=== PATIENT | female | born 1955 | race Caucasian/White ===

== ENCOUNTER 2023-12-27 08:08 | Emergency (ER) | payer MEDICARE, SELFPAY ==
[2023-12-27] VITALS (11 sets, daily range): BP systolic 131–138; BP diastolic 63–76; PULSE 60; TEMP 36.7; O2SAT 88–100; BMI 25.8
--- NOTE | 2023-12-27 08:44 | CT_ITS ---
The [address] [address] Patient Name: EDELMIRA GARRETT MRN: [id number] date: 1955 Sex: F Assigned Patient Location: ED.MAIN Current Patient Location: ED.MAIN Accession/Order Number: [id number] Exam Date: 12/27/2023 10:24 Report Date: 12/27/2023 10:55 At the request of: JAMES HWANG Procedure: CT lumbar spine wo con PROCEDURE: CT lumbar spine wo con COMPARISON: None. HISTORY: radicular sxs TECHNIQUE: Axial, Coronal, and Sagittal CT images obtained without IV contrast. Dose reduction techniques were achieved by using automated exposure control and/or adjustment of mA and/or kV according to patient size and/or use of iterative reconstruction technique. FINDINGS: PARASPINAL AREA: Normal with no visible mass. DISCS: Moderate to severe multilevel disc space narrowing most significant L4-5 and L5-S1 with endplate sclerosis and vacuum disks. Moderate diffuse disc/osteophyte complexes throughout the lumbar spine with bilateral L5-S1 foraminal stenosis. Moderate posterior disc/osteophyte complex at L1 4 L5 extending posteriorlyr up to 4 mm into the central canal. BONES: Normal alignment with no acute fractures or spondylolisthesis. Mild to moderate degenerative spondylosis and facet osteoarthropathy OTHER: Extensive vascular calcifications CT/CT lumbar spine wo con IMPRESSION: Moderate diffuse degenerative changes with bilateral L5 foraminal stenosis No acute abnormality Electronically authenticated by: ASHLEY FUCHS Date: 12/27/2023 10:55
--- NOTE | 2023-12-27 08:52 | ED_ITS ---
HPI HPI - General Adult General Chief complaint: Back Pain/Injury Stated complaint: LOWER EXTREMITY PAIN BOTH SIDES Time Seen by Provider: 12/27/23 08:14 Source: patient Mode of arrival: Wheelchair Limitations: no limitations History of Present Illness HPI narrative: Patient was in ED complaining of low back pain that radiates into both hips and into the left thigh. She is dealt with back pain on and off for years and she will get flareups sometimes. She has been to her doctor in the past for lidocaine injections. She has had a back surgery many many years ago but she cannot remember exactly what it was or what it was for. She was pain-free after surgery for a long time and then it started to flareup again. No loss of bowel or bladder function. No vomiting no abdominal pain. She does say it radiates through into the groin and her legs but no specific abdominal pain. She is not on blood thinners, no IV drug abuse. Patient denies fevers. No saddle anesthesia. She reports for the past 3 nights she has had trouble sleeping because of the pain. She called her doctor and actually had an appointment this morning and wanted to get a muscle relaxer and pain medicine but decided to come to the ED instead Related Data Home Medications ?Medication ?Instructions ?Recorded ?Confirmed ezetimibe 10 mg tablet 10 mg PO .QD 12/27/23 12/27/23 famotidine 40 mg tablet 40 mg PO .QHS 12/27/23 12/27/23 levothyroxine 25 mcg tablet 25 mcg PO .ACB 12/27/23 12/27/23 montelukast 10 mg tablet 10 mg PO .QD 12/27/23 12/27/23 rosuvastatin 5 mg tablet 5 mg PO .QD 12/27/23 12/27/23 venlafaxine 150 mg 150 mg PO QAM 12/27/23 12/27/23 capsule,extended release 24 hr Previous Rx's ?Medication ?Instructions ?Recorded cyclobenzaprine 10 mg tablet 10 mg PO TID #14 tabs 12/27/23 methylprednisolone 4 mg tablets in 4 mg PO DAILY #21 ea 12/27/23 a dose pack (Medrol (Tripp)) oxycodone-acetaminophen 5 mg-325 1 tab PO Q6H #14 tabs 12/27/23 mg tablet (Percocet) Allergies Allergy/AdvReac Type Severity Reaction Status Date / Time No Known Drug Allergies Allergy Verified 12/27/23 08:16 Opioid HPI Opioid Management Most Recent Opioid Data: Last Pain Scale 4 12/27/23 11:07 Last ED Pain Assessment 12/27/23 11:07 Last MAR Pain Assessment 12/27/23 09:50 Review of Systems ROS Status of ROS 10 or more systems reviewed and unremark able except as noted in history and below Exam Narrative Exam Narrative: Time Seen: [] Vital Signs: [Per nurse's notes.] General: [Alert] Skin: [Warm, dry, no rash.] Head: [Normocephalic, atraumatic.] Neck: [Supple, trachea midline.] Eye: [Pupils are equal, round and reactive to light, extraocular movements are intact, normal conjunctiva.] Ears, nose, mouth and throat: oral mucosa moist. Cardiovascular: [Regular rate and rhythm, no murmur.] Respiratory: [Lungs are clear to auscultation, respirations are non-labored, breath sounds are equal.] Chest wall: [No tenderness, no deformity.] Gastrointestinal: [Soft, nontender, non distended, normal bowel sounds.] MSK: 5 out of 5 muscle strength x 4 extremities no calf pain or edema, Normal distal pulses and sensation. Normal proprioception in her feet. Normal push pull in her feet. Tenderness in the lumbar region paraspinal and SI joints. Lymphatics: [No lymphadenopathy.] Psychiatric: [Cooperative, appropriate mood & affect.] Neurological: [Alert and oriented to person, place, time, and situation, no focal neurological deficit observed.] Constitutional Vital Signs, click to edit/add: Last Vital Signs Temp 98.1 F 12/27/23 08:12 Pulse 60 12/27/23 08:12 Resp 16 12/27/23 08:12 BP 138/63 12/27/23 11:19 Pulse Ox 99 12/27/23 11:19 O2 Del Method Room Air 12/27/23 08:12 O2 Flow Rate 2 12/27/23 09:55 Course Vital Signs Vital signs: Vital Signs Temperature 98.1 F 12/27/23 08:12 Pulse Rate 60 12/27/23 08:12 Respiratory Rate 16 12/27/23 08:12 Blood Pressure 131/76 12/27/23 08:12 Pulse Oximetry 97 12/27/23 08:12 Oxygen Delivery Method Room Air 12/27/23 08:12 Temperature 98.1 F 12/27/23 08:12 Pulse Rate 60 12/27/23 08:12 Respiratory Rate 16 12/27/23 08:12 Blood Pressure 138/63 12/27/23 11:19 Pulse Oximetry 99 12/27/23 11:19 Oxygen Delivery Method Room Air 12/27/23 08:12 Oxygen Delivery Flow Rate 2 12/27/23 09:55 Medical Decision Making MDM Narrative Medical decision making narrative: Patient CT scan shows foraminal stenosis at L5. This is consistent with the patient's findings. Patient is feeling better with pain medication and muscle relaxers. I will send her home with pain meds, muscle relaxers, and steroids for the inflammation. She said she has seen Dr. Colunga in the past so I will refer her to outpatient neurosurgery for further management. Also follow-up with family doctor for management as well. She is neurologically intact. Return to ED if worsening symptoms or anything more that is concerning. Differential Diagnosis Differential Diagnosis: Cauda equina, lumbar radiculopathy, sciatica, lumbar strain Medical Records Medical records reviewed: Yes I reviewed the patient's medical records Lab Data Lab results reviewed: Yes I reviewed the patient's lab results Labs: Lab Results 12/27/23 Range/Units 08:55 WBC 5.4 (4.0-11.0) 10^3/uL RBC 4.09 L (4.20-5.40) 10^6/uL Hgb 12.5 (12.0-16.0) g/dL Hct 37.0 (36.0-48.0) % MCV 90.5 (81.0-99.0) fL MCH 30.6 (26.7-34.0) pg MCHC 33.8 (29.9-35.2) g/dL RDW 13.1 (11.0-15.0) % Plt Count 276 (150-450) 10^3/uL MPV 10.0 (9.5-13.5) fL Neut % (Auto) 59.2 (43.0-75.0) % Lymph % (Auto) 27.4 (20.5-60.0) % [place] % (Auto) 10.6 (1.7-12.0) % Eos % (Auto) 1.7 (0.9-7.0) % Baso % (Auto) 0.9 (0.2-2.0) % Neut # (Auto) 3.2 (1.4-6.5) 10^3/uL Lymph # (Auto) 1.5 (1.2-3.8) 10^3/uL [place] # (Auto) 0.6 (0.3-0.8) 10^3/uL Eos # (Auto) 0.1 (0.0-0.7) 10^3/uL Baso # (Auto) 0.1 (0.0-0.1) 10^3/uL Abs Immat Gran (auto) 0.01 (0.00-0.03) 10^3/uL Imm/Tot Granulo (auto) 0.2 (0.0-0.5) % Sodium 135 L (136-145) mmol/L Potassium 4.2 (3.5-5.1) mmol/L Chloride 99 (98-107) mmol/L Carbon Dioxide 24.8 (21.0-32.0) mmol/L Anion Gap 15.4 BUN 9.0 (7.0-18.0) mg/dL Creatinine 0.71 (0.55-1.02) mg/dL Est GFR ( Amer) >60 (>=60) Est GFR (Non-Af Amer) >60 (>=60) BUN/Creatinine Ratio 12.7 Glucose 99 (74-106) mg/dL Calcium 8.7 (8.5-10.1) mg/dL Total Bilirubin 0.6 (0.2-1.0) mg/dL AST 19 (15-37) U/L ALT 30 (14-59) U/L Alkaline Phosphatase 75 (46-116) U/L Total Protein 6.9 (6.4-8.2) g/dL Albumin 4.0 (3.4-5.0) g/dL Globulin 2.9 g/dL Albumin/Globulin Ratio 1.[address] scan - abdomen: Radiologist's impression: ITS Impressions Lumbar Spine CT 12/27/23 08:44 IMPRESSION: Moderate diffuse degenerative changes with bilateral L5 foraminal stenosis No acute abnormality Electronically authenticated by: ASHLEY FUCHS Date: 12/27/2023 10:55 Discharge Plan Discharge Stand Alone Forms: Portal Instructions Chief Complaint: Back Pain/Injury Clinical Impression: Lumbar radiculopathy Patient Disposition: Home, Self-Care Time of Disposition Decision: 11:13 Condition: Good Mode of Transportation: Private Vehicle Prescriptions / Home Meds: New cyclobenzaprine 10 mg tablet 10 mg PO TID Qty: 14 0RF oxycodone-acetaminophen [Percocet] 5-325 mg tablet 1 tab PO Q6H Qty: 14 0RF methylprednisolone [Medrol (Tripp)] 4 mg tablets,dose pack 4 mg PO DAILY Qty: 21 0RF No Action famotidine 40 mg tablet 40 mg PO .QHS venlafaxine 150 mg capsule,extended release 24hr 150 mg PO QAM levothyroxine 25 mcg tablet 25 mcg PO .ACB montelukast 10 mg tablet 10 mg PO .QD ezetimibe 10 mg tablet 10 mg PO .QD rosuvastatin 5 mg tablet 5 mg PO .QD Print Language: Guatemalan Instructions: Lumbar Radiculopathy (ED) Referrals: VIVEK GARCIA MD [Primary Care Provider] - 1 week SHARON COLUNGA [Physician] - 1 week Sonia Gan MD [Physician] - 1 week Discharge Date/Time: 12/27/23 11:25
[2023-12-27] MEDS: KETOROLAC TROMETHAMINE 30 MG/ML VIAL IVP (08:57)
[2023-12-27] MEDS: ORPHENADRINE 60 MG/ 2 ML VIAL IV (08:58)
[2023-12-27 09:07] LABS: Basophils Absolute Auto 0.1 10^3/uL (0.0-0.1); Basophils Percent Auto 0.9 % (0.2-2.0); Eosinophils Absolute Auto 0.1 10^3/uL (0.0-0.7); Eosinophils Percent Auto 1.7 % (0.9-7.0); Hemoglobin 12.5 g/dL (12.0-16.0); Immature Granulocytes Abs Auto 0.01 10^3/uL (0.00-0.03); Immature Granulocytes Pct Auto 0.2 % (0.0-0.5); Lymphocytes Absolute Auto 1.5 10^3/uL (1.2-3.8); Lymphocytes Percent Auto 27.4 % (20.5-60.0); Mean Corpuscular HGB Conc 33.8 g/dL (29.9-35.2); Mean Corpuscular Hemoglobin 30.6 pg (26.7-34.0); Mean Corpuscular Volume 90.5 fL (81.0-99.0); Monocytes Absolute Auto 0.6 10^3/uL (0.3-0.8); Monocytes Percent Auto 10.6 % (1.7-12.0); Neutrophils Absolute Auto 3.2 10^3/uL (1.4-6.5); Neutrophils Percent Auto 59.2 % (43.0-75.0); Platelet Count 276 10^3/uL (150-450); Red Blood Count 4.09 10^6/uL (4.20-5.40); Red Cell Distribution Width 13.1 % (11.0-15.0); White Blood Count 5.4 10^3/uL (4.0-11.0)
[2023-12-27 09:24] LABS: Alanine Aminotransferase 30 U/L (14-59); Albumin Globulin Ratio 1.4; Alkaline Phosphatase 75 U/L (46-116); Anion Gap 15.4; Aspartate Amino Transferase 19 U/L (15-37); BUN Creatinine Ratio 12.7; Bilirubin Total 0.6 mg/dL (0.2-1.0); Calcium 8.7 mg/dL (8.5-10.1); Carbon Dioxide 24.8 mmol/L (21.0-32.0); Chloride 99 mmol/L (98-107); Estimated GFR (African America >60 (>=60); Estimated GFR (Non-African Ame >60 (>=60); Globulin 2.9 g/dL; Glucose 99 mg/dL (74-106); Potassium 4.2 mmol/L (3.5-5.1); Sodium 135 mmol/L (136-145); Total Protein 6.9 g/dL (6.4-8.2)
[2023-12-27] MEDS: DIAZEPAM 10 MG/2 ML SYRINGE 2 MG IV (09:50)
[2023-12-27] MEDS: HYDROMORPHONE HCL 0.5 MG/0.5 ML SYRINGE IV (09:50)
== END 2023-12-27 11:25 | disposition home or self-care (01) ==
PROVIDERS: Emergency Provider Emergency Medicine; PCP Internal Medicine
DX: M54.16 Radiculopathy, lumbar region (principal); M48.061 Spinal stenosis, lumbar region without neurogenic claudication
CPT/HCPCS: 36415; 72131; 80053; 85025; 96374; 96375; 99284; J1170; J1885; J2360; J3360

== ENCOUNTER 2024-04-23 09:58 | Outpatient (RCR) | payer MEDICARE, SELFPAY | END 2024-05-03 13:28 | disposition home or self-care (01) | LOC: PT 09:58 | PROVIDERS: PCP Internal Medicine | DX: M48.062 Spinal stenosis, lumbar region with neurogenic claudication (principal); M48.061 Spinal stenosis, lumbar region without neurogenic claudication; R29.3 Abnormal posture; R26.89 Other abnormalities of gait and mobility; R26.9 Unspecified abnormalities of gait and mobility | CPT/HCPCS: 97112; 97161 ==

== ENCOUNTER 2024-06-05 12:20 | Outpatient (OUT) | payer MEDICARE, SELFPAY ==
--- NOTE | 2024-06-05 | CONS_ITS ---
CONSULTATION DATE: 06/05/2024 TO: Dr. Gomez CHIEF COMPLAINT: Includes severe bilateral lower back pain, bilateral lower extremity pain. HISTORY OF PRESENT ILLNESS: Review of systems, past medical/surgical history were obtained and documented on the health questionnaire and is available upon request. She is a 68-year-old female, reports of having had pain in the above mentioned areas for many years. It is rated between 3-7/10 pain, described as a deep aching pain with a sharp component, increased with activity such as standing, walking and performing transitioning maneuvers. She feels most comfortable in the semi-recumbent position. Denies any change in bowel and bladder habits, and she reports at times progressive tingling and weakness of the lower extremities. CURRENT MEDICATION: Includes Tylenol, [id number] Motrin she takes regularly and she also in an independent exercise program. She swims on a regular basis. Despite this, she has progressive pain in the above mentioned areas. EXAM: Her examination is notable for patient having hypoesthesia along the L4 dermatome, occurring bilaterally. She appears to have 3/5 strength of her quadriceps and anterior tibialis bilaterally. Straight leg raise was equivocally positive at approximately 90 degrees. She had no signs consistent with myelopathy involving the lower extremities. IMPRESSION: Our impression is patient with chronic pain secondary to L4 radiculopathy from spinal stenosis. RECOMMENDATIONS: I recommend she consider starting Zonegran 50 mg q.h.s. for seven days, then increase this to 100 mg at h.s. thereafter. Proceed with a bilateral L4-5 transforaminal epidural steroid injection under fluoroscopic guidance and maintain her independent aquatic program. I have gone over the details of the procedure with the patient. All her questions answered. She agrees to proceed with the outlined plan. As part of providing excellent, safe, comprehensive care, the following was completed at our patient's visit: 1. A medication reconciliation and review to ensure accurate knowledge of current/active medications, including asking our patients to inform us about any [id number] medications or herbal remedies/nutritional supplements/alternative remedies. 2. A review to specifically ensure our patients have had annual screening for: elevated body mass index (BMI, see intake chart for exact total), tobacco use, screening for depression, and screening for unhealthy alcohol use. When screening is concerning, patients are provided with education and the specific recommendation to discuss the concerning health issue and treatment options with their primary care provider. YOLANDAD
== END 2024-06-05 12:21 | disposition home or self-care (01) ==
LOC: PM 12:21
PROVIDERS: PCP Internal Medicine; Visit Provider Nurse Practitioner
DX: M48.062 Spinal stenosis, lumbar region with neurogenic claudication (principal); M54.16 Radiculopathy, lumbar region
CPT/HCPCS: G0463

== ENCOUNTER 2024-06-18 07:35 | Day surgery (SDC) | payer MEDICARE, SELFPAY ==
--- OUTSIDE RECORDS SUMMARY | 2024-06-18 07:38 | XMS_ITS | CCD ---
Author Organization [facility] Care Team Providers Care Golf Coach Name Role Phone Messi Jimenez Unavailable DR HENRI GARCIA Primary Care Unavailable MARIANA LUNDY Admitting Unavailable MARIANA LUNDY Attending Unavailable NARCISO, DR LILIANE Hughes Consulting Unavailable MARIANA LUNDY Consulting Unavailable DR HENRI GARCIA Primary Care Unavailable JULIETTE BUNCH Admitting Unavailable JULIETTE BUNCH Attending Unavailable JULIETTE BUNCH Consulting Unavailable JR Henri Garcia Primary Care Provider ELIUD Winn Attending Provider Henri Garcia Primary Care Unavailable Rachelle Winn Admitting Unavailable Rachelle Winn Attending Unavailable Henri Garcia Primary Care Unavailable Lyle, Rachelle Admitting Unavailable Rachelle Winn Attending Unavailable RACHELLE WINN Referring Unavailable HENRI GARCIA JR Primary Care Unavailable Allergies Allergy Classification Reported Allergen(s) Allergy Type Date of Onset Reaction(s) Facility (4 sources) celecoxib Drug Allergy [facility] Other (1 source) celecoxib Drug Allergy 01-19-2024 [facility] Repository Medications Current Medications Medication Drug Class(es) Dates Sig (Normalized) Sig (Original) dexamethasone 1 mg oral tablet (3 sources) Corticosteroid Start: 01-19-2024 Dexamethasone Active MG PO January 19, 2024 12:00am ezetimibe 10 mg oral tablet (3 sources) Dietary Cholesterol Absorption Inhibitor Start: 01-19-2024 Ezetimibe Active MG PO January 19, 2024 12:00am famotidine 40 mg oral tablet (3 sources) Histamine-2 Receptor Antagonist Start: 01-19-2024 Famotidine Active MG PO January 19, 2024 12:00am fexofenadine (4 sources) Histamine-1 Receptor Antagonist Fexofenadine HCl Active levothyroxine sodium 0.025 mg oral tablet (7 sources) l-Thyroxine Start: 01-19-2024 Levothyroxine Active MCG PO January 19, 2024 12:00am take 1 tablet by art th once daily in the morning Levothyroxine Sodium 25 MCG 1 tablet in the morning on an empty stomach Orally Once a day Active rosuvastatin calcium 5 mg oral tablet (3 sources) HMG-CoA Reductase Inhibitor Start: 01-19-2024 Rosuvastatin Active MG PO January 19, 2024 12:00am venlafaxine (7 sources) Serotonin and Norepinephrine Reuptake Inhibitor Start: 01-19-2024 Venlafaxine Active M G PO January 19, 2024 12:00am take 1 tablet by art th every twenty-four hours Venlafaxine HCl 75 MG 1 tablet with food Orally Once a day Active Vitamin D (4 sources) Vitamin D Active Completed/Discontinued Medications Medication Drug Class(es) Dates Sig (Normalized) Sig (Original) atorvastatin 40 mg oral tablet (4 sources) HMG-CoA Reductase Inhibitor take 1 tablet by mouth every twenty-four hours Atorvastatin Calcium 40 MG 1 tablet Orally Once a day Not-Taking Problems Active Problems Problem Classification Problem Date Documented Da te Episodic/Chronic Abdominal pain (3 sources) Unspecified abdominal pain; Translations: [UNSPECIFIED ABDOMINAL PAIN] Onset: 05-15-2022 Episodic E Codes: Adverse effects of medical drugs (1 source) Adverse effect of other drugs, medicaments and biological substances, initial encounter; Translations: [ADVRS EFF OTH RX MED BIO SUBST INIT] Onset: 05-24-2022 Episodic Nausea and vomiting (4 sources) Nausea with vomiting, unspecified; Translations: [NAUSEA WITH VOMITING UNSPECIFIED] Onset: 05-21-2022 Episodic Other aftercare (1 source) Other fci (current) drug therapy; Translations: [OTH LONG-TERM CURRENT DRUG THERAPY] Onset: 05-24-2022 Episodic Other nervous system disorders (4 sources) Chronic pain; Translations: [Other chronic pain] Chronic Other nervous system disorders (2 sources) Other chronic pain Onset: 06-04-2021 Resolved: 07-14-2021 Chronic Residual codes; unclassified (1 source) Asymptomatic menopausal state; Translations: [Asymptomatic menopausal state] Onset: 02-28-2024 Episodic Spondylosis; intervertebral disc disorders; other back problems (18 sources) Solitary sacroiliitis; Translations: [Sacroiliitis, not elsewhere classified] Onset: 06-04-2021 Resolved: 07-14-2021 Chronic Spondylosis; intervertebral disc disorders; other back problems (12 sources) Lumbar radiculopathy; Translations: [Radiculopathy, lumbar region] Onset: 06-04-2021 Resolved: 07-14-2021 Episodic Viral infection (1 source) Zoster without complications; Translations: [ZOSTER WITHOUT COMPLICATIONS] Onset: 05-24-2022 Episodic Past or Other Problems Problem Classification Problem Date Documented Da te Episodic/Chronic Other non-traumatic joint disorders (1 source) Pain in left hip Onset: 06-04-2021 Resolved: 06-04-2021 Episodic Other non-traumatic joint disorders (1 source) Pain in right hip Onset: 06-04-2021 Resolved: 06-04-2021 Episodic Results Test Name Value Interpretation Reference Range Facility XR lumbar spine AP/LAT/FLX/E XTon 02-28-2024 XR lumbar spine AP/LAT/FLX/EXT [facility] [place] [address] XRay Report Signed Patient: Kelly Carroll MR#: [id number] : 1955 Acct:[id number] Age/Sex: 68 / F ADM Date: 02/28/24 Loc: [place] Room: Type: [facility] Attending Dr: Rachelle Winn APRN Copies to: Rachelle Winn APRN Ordering Provider: Rachelle Winn APRN Date of Service: 02/28/24 XR/XR lumbar spine AP/LAT/FLX/EXT: M54.16 - Radiculopathy, lumbar region LUMBAR SPINE - 4 views CLINICAL HISTORY: Low back pain for 4 years with numbness into going into both legs. COMPARISON: Lumbar spine 02/28/2012 FINDINGS: Vertebral body heights appear maintained. Diffuse degenerative disease worst at L4-L5. There is associated endplate and facet joint degenerative changes. No pathological motion is seen on flexion or extension views. XR/XR lumbar spine AP/LAT/FLX/EXT IMPRESSION: DIFFUSE DEGENERATIVE DISEASE, WORST AT L4-L5. Impression dictated by: Narendra Aquino Jr., D.O.02/28/2024 2:45 PM Dictation Location: [place] [address] Transcribed By: [facility] 02/28/24 1445 Dictated By: Narendra Aquino Jr, DO 02/28/24 1441 Signed By: 02/28/24 1445 Normal [facility] MR lumbar spine wo/w conon 0 02-14-2024 MR lumbar spine wo/w con [facility] [place] [address] MRI Report Signed Patient: Kelly Carroll MR#: [id number] : 1955 Acct:[id number] Age/Sex: 68 / F ADM Date: 02/13/24 Loc: Room: Type: [facility] Attending Dr: Rachelle Winn APRN Copies to: Rachelle Winn APRN Ordering Provider: Rachelle Winn APRN Date of Service: 02/13/24 MR/MR lumbar spine wo/w con: M54.16 MR lumbar spine wo/w con 02/13/2024 7:12 PM SIGNS AND SYMPTOMS: Low back pain, numbness and tingling in lower extremities PROTOCOL: Multiple multisequence MR images of the lumbar spine were obtained with and without IV contrast. CONTRAST: 15 mL of intravenous ProHance COMPARISON: 02/28/2012 FINDINGS: The bones of the lumbar spine are in anatomic alignment. There is preservation of vertebral body heights. There is moderate disc height loss at T12-L1 and L1-L2. There is mild disc height loss at L3-L4 and L5-S1. This severe disc height loss at L4-L5. There is Modic type II fatty endplate degenerative change at L4-5 with mild endplate edema. There is mild Modic type I endplate edema at L1-L2 and L2-L3. The conus terminates at the inferior endplate of the L1 vertebral body level. No epidural or paraspinous fluid collection is appreciated. At T11-T12: There is a central disc protrusion slightly to the left of midline contributing to mass effect on the anterior aspect of the cord displacing it posteriorly into the right of midline. No underlying edema and enhancement is noted to suggest cord compression. There is moderate spinal canal stenosis. Facet hypertrophy is present with ligamentum flavum thickening contributing to mild bilateral neural foraminal narrowing. At T12-L1: There is a central disc extrusion with caudal migration contributing to moderate spinal canal narrowing. There is facet hypertrophy bilaterally. There is mild bilateral neural foraminal narrowing. At L1-L2: There is a circumferential disc bulge with facet hypertrophy and small bilateral facet effusions. There is mild spinal canal narrowing with moderate bilateral neural foraminal stenosis. At L2-L3: There is a circumferential disc bulge with facet hypertrophy. There is ligament flavum thickening and small bilateral facet effusions. There is oovd-[id number] narrowing of the spinal canal with moderate bilateral neural foraminal stenosis. At L3-L4: There is a broad-based disc bulge with facet hypertrophy. There is an internal synovial cyst arising from the facet on the right measuring 5 mm in greatest dimension contributing to mild spinal canal stenosis. There is mild to moderate bilateral neural foraminal narrowing. At L4-L5: There is a circumferential disc bulge with a focal right subarticular disc extrusion. There is facet hypertrophy. There is mild to moderate narrowing of the spinal canal with moderate bilateral neural foraminal stenosis. At L5-S1: There is a circumferential disc bulge with endplate osteophyte formation. There is facet hypertrophy. There is severe bilateral neural foraminal narrowing with mass effect on the exiting L5 nerve roots bilaterally. There is mild spinal canal narrowing. MR/MR lumbar spine wo/w con IMPRESSION: At L5-S1: There is a circumferential disc bulge with endplate osteophyte formation. There is facet hypertrophy. There is severe bilateral neural foraminal narrowing with mass effect on the exiting L5 nerve roots bilaterally. There is mild spinal canal narrowing. At L3-L4: There is a broad-based disc bulge with facet hypertrophy. There is an internal synovial cyst arising from the facet on the right measuring 5 mm in greatest dimension contributing to mild spinal canal stenosis. There is mild to moderate bilateral neural foraminal narrowing. At T11-T12: There is a central disc protrusion slightly to the left of midline contributing to mass effect on the anterior aspect of the cord displacing it posteriorly into the right of midline. No underlying edema and enhancement is noted to suggest cord compression. There is moderate spinal canal stenosis. Facet hypertrophy is present with ligamentum flavum thickening contributing to mild bilateral neural foraminal narrowing. Lesser degrees of degenerative changes are noted throughout, as described above. No abnormal postcontrast enhancement. Impression dictated by: Timothy Daniel M.D.02/14/2024 12:31 PM Dictation Location: [place] [address] Transcribed By: [facility] 02/14/24 1231 Dictated By: Timothy Daniel II, MD 02/14/24 1220 Signed By: 02/14/24 1231 Normal [facility] Creatinine (Bld) [Mass/Vol]O rdered By: Rachelle Winn on 02-13-2024 Creatinine [Mass/Vol] 0.8 mg/dL 0.6-1.3 [facility] Comment on above: ER/ESD physician is notified/shown all ISTAT results.Critical values may be confirmed by laboratory testing ifdeemed necessary by ER attending doctor. No Panel InformationOrdered By: Rachelle Winn on 02-13-2024 Bedside Estimated GFR (eGFR) > 60.0 [facility] CARDIAC TIMOTHY ADMITon 022 CK [Catalytic activity/Vol] 112 U/L Normal 26-192 [facility] Comment on above: Performed By: #### C CARLI JOHNSON #### [facility] [address] [place] [address] Dr. Didier Gamez CK.MB [Mass/Vol] 1.46 ng/mL Normal <=3.[address] [facility] Comment on above: Performed By: #### C ELIZABETH, CARLI #### [facility] [address] [place] [address] [address] Didier Gamez HSTROP 5.7 pg/mL Normal 4.0-51.3 [facility] Comment on above: Result Comment: CUT- OFF POINTS HAVE BEEN ESTABLISHED BASED ON THE FOURTH UNIVERSAL DEFINITIONS OF MYOCARDIAL INFARCTION. THE UPPER REFERENCE LIMIT (URL) OF TROPONIN, DEFINED THE 99TH PERCENTILE OF cTnI DISTRIBUTION IN A REFERENCE POPULATION, HAS BEEN CONFIRMED THE DECISION THRESHOLD FOR MD DIAGNOSIS. Performed By: #### C ELIZABETH, QUINTINDM #### [facility] [address] [place] [address] [address] Didier Gamez ALTON 42 ng/mL Normal 9-82 [facility] Comment on above: Performed By: #### C MP, CMADM #### [facility] [address] [place] [address] [address] Didier Gamez CBC AUTO DIFFon 05-15-2022 BASO # 0.0 103/ul Normal 0.0-0.1 [facility] Comment on above: Performed By: #### C BC #### [facility] [address] [place] [address] Dr. Didier Gamez Basophils/100 WBC (Bld) 0.6 % Normal 0.2-2.0 [facility] Comment on above: Performed By: #### C BC #### [facility] [address] [place] [address] Dr. Didier Gamez EO # 0.1 103/ul Normal 0.0-0.7 [facility] Comment on above: Performed By: #### C BC #### [facility] [address] [place] [address] Dr. Didier Gamez Eosinophils/100 WBC (Bld) 0.7 % Critically low 0.9-7.0 [facility] Comment on above: Performed By: #### C BC #### [facility] [address] [place] [address] Dr. Didier Gamez Erythrocyte distribution width (RBC) [Ratio] 13.1 % Normal 11.0-15.0 [facility] Comment on above: Performed By: #### C BC #### [facility] [address] [place] [address] Dr. Didier Gamez Hematocrit (Bld) [Volume fraction] 41.0 % Normal 36.0-48.0 [facility] Comment on above: Performed By: #### C BC #### [facility] [address] [place] [address] Dr. Didier Gamez Hemoglobin (Bld) [Mass/Vol] 13.6 g/dL Normal 12.0-16.0 [facility] Comment on above: Performed By: #### C BC #### [facility] [address] [place] [address] Dr. Didier Gamez IG # 0.01 10e3/ul Normal 0.00-0.03 [facility] Comment on above: Performed By: #### C BC #### [facility] [address] [place] [address] Dr. Didier Gamez IG % 0.1 % Normal 0.0-0.5 [facility] Comment on above: Performed By: #### C BC #### [facility] [address] [place] [address] Dr. Didier Gamez LYMPH # 1.5 103/ul Normal 1.2-3.8 [facility] Comment on above: Performed By: #### C BC #### [facility] [address] [place] [address] Dr. Didier Gamez Lymphocytes/100 WBC (Bld) 21.8 % Normal 20.5-60.0 [facility] Comment on above: Performed By: #### C BC #### [facility] [address] [place] [address] Dr. Didier Gamez MANUAL DIFF REQ NO Normal [facility] Comment on above: Performed By: #### C BC #### [facility] [address] [place] [address] Dr. Didier Gamez MCH (RBC) [Entitic mass] 30.7 pg Normal 26.7-34.0 [facility] Comment on above: Performed By: #### C BC #### [facility] [address] [place] [address] Dr. Didier Gamez MCHC (RBC) [Mass/Vol] 33.2 g/dL Normal 29.9-35.2 [facility] Comment on above: Performed By: #### C BC #### [facility] [address] [place] [address] Dr. Didier Gamez MCV (RBC) [Entitic vol] 92.6 fL Normal 81.0-99.0 [facility] Comment on above: Performed By: #### C BC #### [facility] [address] [place] [address] Dr. Didier Gamez MONO # 0.6 103/ul Normal 0.3-0.8 [facility] Comment on above: Performed By: #### C BC #### [facility] [address] [place] [address] [address] Didier Gamez Monocytes/100 WBC (Bld) 8.0 % Normal 1.7-12.0 [facility] Comment on above: Performed By: #### C BC #### [facility] [address] [place] [address] Dr. Didier Gamez NEUT # 4.7 103/ul Normal 1.4-6.5 [facility] Comment on above: Performed By: #### C BC #### [facility] [address] [place] [address] Dr. Didier Gamez Neutrophils/100 WBC (Bld) 68.8 % Normal 43.0-75.0 [facility] Comment on above: Performed By: #### C BC #### [facility] [address] [place] [address] Dr. Didier Gamez Platelet mean volume (Bld) [Entitic vol] 9.9 fL Normal 9.5-13.5 [facility] Comment on above: Performed By: #### C BC #### [facility] [address] [place] [address] Dr. Didier Gamez PLT 332 103/ul Normal 150-450 [facility] Comment on above: Performed By: #### C BC #### [facility] [address] [place] [address] Dr. Didier Gamez RBC 4.43 106/ul Normal 4.20-5.40 [facility] Comment on above: Performed By: #### C BC #### [facility] [address] [place] [address] Dr. Didier Gamez WBC 6.9 103/ul Normal 4.0-11.0 [facility] Comment on above: Performed By: #### C BC #### [facility] [address] [place] [address] Dr. Didier Gamez ER URINE PROFILEon 2 Bilirubin Ql (U) Negative Normal NEGATIVE [facility] Comment on above: Performed By: #### E RUR #### [facility] [address] [place] [address] Dr. Didier Gamez Clarity (U) CLEAR Normal CLEAR [facility] Comment on above: Performed By: #### E RUR #### [facility] [address] [place] [address] Dr. Didier Gamez Color (U) LT. YELLOW Normal YELLOW [facility] Comment on above: Performed By: #### E RUR #### [facility] [address] [place] [address] Dr. Didier Gamez ERUAHKlarissa A micrscopic examination will be performed if indicated. Normal [facility] Comment on above: Performed By: #### E RUR #### [facility] [address] [place] [address] Dr. Didier Gamez Glucose Ql (U) Negative Normal NEGATIVE [facility] Comment on above: Performed By: #### E RUR #### [facility] [address] [place] [address] Dr. Didier Gamez Hemoglobin Ql (U) Negative Normal NEGATIVE [facility] Comment on above: Performed By: #### E RUR #### [facility] [address] [place] [address] Dr. Didier Gamez Ketones Ql (U) TRACE Abnormal NEGATIVE [facility] Comment on above: Performed By: #### E RUR #### [facility] [address] [place] [address] Dr. Didier Gamez LEUKOCYTES Negative Normal NEGATIVE [facility] Comment on above: Performed By: #### E RUR #### [facility] [address] [place] [address] Dr. Didier Gamez Nitrite Ql (U) Negative Normal NEGATIVE [facility] Comment on above: Performed By: #### E RUR #### [facility] [address] [place] [address] Dr. Didier Gamez pH (U) 7.5 [pH] Normal 5-9 [facility] Comment on above: Performed By: #### E RUR #### [facility] [address] [place] [address] Dr. Didier Gamez SPEC GRAVITY 1.020 Normal 1.005-<=1.025 [facility] Comment on above: Performed By: #### E RUR #### [facility] [address] [place] [address] Dr. Didier Gamez UA PROTEIN Negative Normal NEGATIVE/ TRACE [facility] Comment on above: Performed By: #### E RUR #### [facility] [address] [place] [address] Dr. Didier Gamez UR MICRO IND NOT INDICATED Normal [facility] Comment on above: Performed By: #### E RUR #### [facility] [address] [place] [address] Dr. Didier Gamez Urobilinogen Qn (U) 0.2 {Wale'U}/dL Normal 0.2 - 1. 0 [facility] Comment on above: Performed By: #### E RUR #### [facility] [address] [place] [address] Dr. Didier Gamez PROF 14(COMP METB)on 022 Albumin [Mass/Vol] 4.1 g/dL Normal 3.4-5.0 [facility] Comment on above: Performed By: #### C CARLI JOHNSON #### [facility] [address] [place] [address] Dr. Didier Gamez Albumin/Globulin [Mass ratio] 1.3 {ratio} Normal [facility] Comment on above: Performed By: #### C CARLI JOHNSON #### [facility] [address] [place] [address] Dr. Didier Gamez ALP [Catalytic activity/Vol] 62 U/L Normal 46-116 [facility] Comment on above: Performed By: #### C CARLI JOHNSON #### [facility] [address] [place] [address] Dr. Didier Gamez ALT [Catalytic activity/Vol] 31 U/L Normal 14-59 [facility] Comment on above: Performed By: #### C CARLI JOHNSON #### [facility] [address] [place] [address] Dr. Didier Gamez Anion gap [Moles/Vol] 13.1 mmol/L Normal [facility] Comment on above: Performed By: #### C ELIZABETH, CMADM #### [facility] [address] [place] [address] Dr. Didier Gamez AST [Catalytic activity/Vol] 16 U/L Normal 15-37 [facility] Comment on above: Performed By: #### C ELIZABETH, CMADM #### [facility] [address] [place] [address] Dr. Didier Gamez Bilirubin [Mass/Vol] 0.3 mg/dL Normal 0.2-1.0 [facility] Comment on above: Performed By: #### C ELIZABETH, CMADM #### [facility] [address] [place] [address] Dr. Didier Gamez Calcium [Mass/Vol] 9.1 mg/dL Normal 8.5-10.1 [facility] Comment on above: Performed By: #### C ELIZABETH, CMADM #### [facility] [address] [place] [address] Dr. Didier Gamez Chloride [Moles/Vol] 96 mmol/L Critically low 98-107 [facility] Comment on above: Performed By: #### C ELIZABETH, QUINTINDM #### [facility] [address] [place] [address] Dr. Didier Gamez CO2 [Moles/Vol] 27.7 mmol/L Normal 21.0-32.0 [facility] Comment on above: Performed By: #### C ELIZABETH, CMADM #### [facility] [address] [place] [address] Dr. Didier Gamez Creatinine [Mass/Vol] 0.69 mg/dL Normal 0.55-1.02 [facility] Comment on above: Performed By: #### C ELIZABETH, CMADM #### [facility] [address] [place] [address] Dr. Didier Gamez EGFR-AF SYRIAN >60 Normal >=60 [facility] Comment on above: Performed By: #### C ELIZABETH, QUINTINDM #### [facility] [address] [place] [address] Dr. Didier Gamez EGFR-NON AF SYRIAN >60 Normal >=60 [facility] Comment on above: Performed By: #### C CARLI JOHNSON #### [facility] [address] [place] [address] Dr. Didier Gamez Globulin (S) [Mass/Vol] 3.2 g/dL Normal [facility] Comment on above: Performed By: #### C CARLI JOHNSON #### [facility] [address] [place] [address] Dr. Didier Gamez Glucose [Mass/Vol] 105 mg/dL Normal 74-106 [facility] Comment on above: Performed By: #### C CARLI JOHNSON #### [facility] [address] [place] [address] Dr. Didier Gamez Potassium [Moles/Vol] 3.8 mmol/L Normal 3.5-5.1 [facility] Comment on above: Performed By: #### C CARLI JOHNSON #### [facility] [address] [place] [address] Dr. Didier Gamez Protein [Mass/Vol] 7.3 g/dL Normal 6.4-8.2 [facility] Comment on above: Performed By: #### C CARLI JOHNSON #### [facility] [address] [place] [address] Dr. Didier Gamez Sodium [Moles/Vol] 133 mmol/L Critically low 136-145 [facility] Comment on above: Performed By: #### C CARLI JOHNSON #### [facility] [address] [place] [address] Dr. Didier Gamez Urea nitrogen [Mass/Vol] 10.0 mg/dL Normal 7.0-18.0 [facility] Comment on above: Performed By: #### C CARLI JOHNSON #### [facility] [address] [place] [address] Dr. Didier Gamez Urea nitrogen/Creatinine [Mass ratio] 14.5 mg/mg Normal [facility] Comment on above: Performed By: #### C CARLI JOHNSON #### [facility] [address] [place] [address] Dr. Didier Gamez XR CHEST 1 Von 05-15-2022 XR CHEST 1 V EXAMINATION: XR CHEST 1 V HISTORY: SHORTNESS OF BREATH , left upper quadrant abdominal pain COMPARISON: No relevant comparison available. FINDINGS: LUNGS: No significant pulmonary parenchymal abnormalities. VASCULATURE: No increased pulmonary vasculature. PLEURA: No pneumothorax, effusion, or pleural thickening. CARDIAC: No cardiomegaly or cardiac silhouette abnormality. MEDIASTINUM: No visible mass or adenopathy. BONES: No fracture or visible bone lesion. OTHER: Negative. IMPRESSION: 1. No acute cardiopulmonary process. Electronically authenticated by: LILIANE STUART Date: 2022-05-15 10:49 Normal [facility] Vital Signs Date Time Vital Sign Value Performing Clinician Facility 01-19-2024 10:22-0400 Body height 170.18 cm [facility] 01-19-2024 10:22-0400 Body mass index (BMI) [Ratio] 25.2 kg/m2 [facility] 01-19-2024 10:22-0400 Body weight 73.02 kg [facility] 07-14-2021 10:30-0500 Body height 170.18 cm Messi Jimenez Other [facility] Other 07-14-2021 10:30-0500 Body mass index (BMI) [Ratio] 27.12 kg/m2 Messi Jimenez Other [facility] Other 07-14-2021 10:30-0500 Body weight 78.56 kg Messi Jaramilloky Other [facility] Other 07-14-2021 10:30-0500 Diastolic blood pressure 60 mm[Hg] Messi Jaramilloky Other [facility] Other 07-14-2021 10:30-0500 SaO2% (BldA) [Mass fraction] 98 % Messi Jimenez Other [facility] Other 07-14-2021 10:30-0500 Systolic blood pressure 110 mm[Hg] Messi Jimenez Other [facility] Other 06-04-2021 16:30-0500 Body height 170.18 cm Messi Jimenez Other [facility] Other 06-04-2021 16:30-0500 Body mass index (BMI) [Ratio] 27.47 kg/m2 Messi Jimenez Other [facility] Other 06-04-2021 16:30-0500 Body weight 79.56 kg Messi Jimenez Other [facility] Other 06-04-2021 16:30-0500 Diastolic blood pressure 76 mm[Hg] Messi Jimenez Other [facility] Other 06-04-2021 16:30-0500 Respiratory rate 18 /min Messi Jimenez Other [facility] Other 06-04-2021 16:30-0500 SaO2% (BldA) [Mass fraction] 97 % Messi Jimenez Other [facility] Other 06-04-2021 16:30-0500 Systolic blood pressure 128 mm[Hg] Messi Jimenez Other [facility] Other Encounters Encounter Date Encounter Type Care Provider Facility Start: [facility] Start: 02-28-2024 End: 02-28-2024 Patient encounter procedure JR Henri Garcia Work Phone: [facility] Work Phone: Start: 02-28-2024 End: 02-28-2024 ambulatory JR Henri Garcia Work Phone: [facility] Work Phone: Start: 02-13-2024 End: 02-13-2024 Patient encounter procedure JR Henri Garcia Work Phone: [facility] [place] Work Phone: Start: 02-13-2024 End: 02-13-2024 ambulatory JR Henri Garcia Work Phone: [facility] Work Phone: Start: 01-19-2024 End: 01-19-2024 ambulatory [facility] Work Phone: Start: 01-19-2024 End: 01-19-2024 Patient encounter procedure [facility] Work Phone: Start: 05-21-2022 End: 05-21-[address] HENRI GARCIA Facility:[facility] Start: 05-15-2022 End: 05-15-[address] HENRI GARCIA Facility:[facility] Start: 07-14-2021 End: 07-14-2021 ambulatory Messi Jimenez Other [facility] Other Start: 07-14-2021 Office outpatient visit 15 minutes Messi Jimenez [facility] Start: 06-18-2021 (Procedure) Short Messi Jimenez [facility] Start: 06-18-2021 End: 06-18-2021 ambulatory Messi Jimenez Other [facility] Other Start: 06-04-2021 End: 06-04-2021 ambulatory Messi Jimenez Other [facility] Other Start: 06-04-2021 Office outpatient visit 25 minutes Messi Jimenez [facility] Start: 05-26-2021 (Procedure) Short Messi Jimenez [facility] Start: 05-26-2021 End: 05-26-2021 ambulatory Messi Jimenez Other [facility] Other Procedures Date Procedure Procedure Detail Performing Clinician Start: 02-28-2024 X-ray of lumbar spin e, four views JR Henri Garcia Work Phone: Start: 02-28-2024 Dual energy X-ray absorptiometry JR Henri Garcia Work Phone: Start: 02-13-2024 MRI of lumbar spine with contrast JR Henri Garcia Work Phone: Plan of Treatment Date Care Activity Detail Author Start: 02-13-2024 MR Lumbar spine WO a nd W contrast IV [facility] Start: 02-13-2024 MRI of lumbar spine with contrast MR lumbar spine wo/w con [facility] DXA Skeletal system.axial Views for bone density [facility] MR Lumbar spine WO a nd W contrast IV [facility] XR Lumbar spine 4 Views [facility] Payers Date Payer Category Payer Self-pay [id number] 1960 Medicare [id number] 1955 Unknown [id number] [id number] 1955 Unknown [id number] [id number] [id number] 1955 Unknown [id number] [id number] [id number] Unknown Marce BC/BS [id number] Unknown [id number] 2.16.8 [id number] Unknown [id number] 2.16.8 [id number] Social History Date Type Detail Facility Sex Assigned At [facility] Other Start: 1955 Sex Assigned At Female F [facility] Evaluation note 07-14-2021 Note Date & Type Note Facility 07-14-2021 Evaluation note Encounter Date Diagnosis Assessment Notes Jul, Lumbar radiculopathy (ICD-10 - M54.16) 65 year old male here for follow up status post left L5 and S1 transforaminal epidural steroid injection under fluoroscopic guidance. Patient reports 75% relief of her left lower extremity pain following the procedure. She has some mild intermittent left lower extremity. She voices complaints of radiation down the right lower extremity to the foot, but feels this is mild in nature. Anatomy of spine discussed in detail with patient in regards to patients condition. Overall, patient appears to be doing very well and does not require further treatment at this time. I recommend she increase her activities as tolerated. She is counseled against any excessive bending or twisting. She is advised to call the office if her pain returns. Jul, Lumbar degenerative disc disease (ICD-10 - M51.36) Patient is encouraged to call the office if her pain returns Jul, Chronic pain (ICD-10 - G89.29) Continue medications as prescribed [facility] Other Evaluation note 06-04-2021 Note Date & Type Note Facility 06-04-2021 Evaluation note Encounter Date Diagnosis Assessment Notes Jun, Lumbar degenerative disc disease (ICD-10 - M51.36) Proceed with treatment plan. Jun, Lumbar radiculopathy (ICD-10 - M54.16) 65 year old female here for follow up status post interlaminar epidural steroid injection at the L5-S1 level under fluoroscopic guidance. Patient reports 50% pain relief and increased function following the procedure. She voices continued complaints of low back and bilateral hip pain, with radiation down the left lower extremity to below the knee. I recommend proceeding with a left L5, S1 transforaminal epidural steroid injection. Risks and benefits of procedure explained to patient; patient verbalizes understanding. Jun, Chronic pain (ICD-10 - G89.29) Stable. Jun, Left hip pain (ICD-10 - M25.552) If her left hip pain persists we can consider a left hip and greater trochanteric bursa injection. Jun, Right hip pain (ICD-10 - M25.551) [facility] Other Evaluation note Note Date & Type Note Facility Evaluation note No Information [facility] [employer] Other Evaluation note Note Date & Type Note Facility Evaluation note No assessment information availa ble [facility] Work Phone: Evaluation note Note Date & Type Note Facility Evaluation note Diagnosis Onset Date Neurogenic claudication due to lumbar spinal stenosis acute [facility] Work Phone: History general Narrative - Reported Note Date & Type Note Facility History general Narrative - Reported Type Medical History seasonal allergies Surgical History hysterectomy 1999 Surgical History I&D right finger x2 (DT cat bit e) 2002 Surgical History Right knee scope 2009 Surgical History back surgery -Dr. Dorsey 2011 Surgical History Left knee scope 05/2020 Hospitalization History see above [facility] Other Summary Purpose Family History No Family History Records FoundNo Family History Records FoundNo Family History Records Found Advance Directives No Advanced Directives Records Found Advance Directive Response Recorded Date/ Time Advance Directives Yes January 18 10:12am Chief Complaint and Reason for Visit Chief Complaint low back pain per Dr Marilin Colunga Chief Complaint low back pain per Dr Marilin Colunga M54.16 Reason for Visit Neurogenic claudicat ion due to lumbar spinal stenosis Chief Complaint low back pain per Dr Marilin Colunga M54.16 N95.1 Reason for Visit Neurogenic claudicat ion due to lumbar spinal stenosis Additional Source Comments REASON FOR VISIT (unrecogniz ed section and content) L5-S1 epidural steroid in jectionfollow up after LESfollow up after LTRleft L5, S1 LTR INFORMATION SOURCE (unrecogn ized section and content) DATE CREATED AUTHOR 05/25/2022 [facility] DATE CREATED AUTHOR AUTHOR'S ORGANIZ ATION 03/06/2024 [facility] DATE CREATED AUTHOR AUTHOR'S ORGANIZ ATION 04/27/2024 [facility] Care Teams (unrecognized sec tion and content) Team Status: Active Member Role Status Dates Henri Garcia JR DO Primary Care Provider Active Team Status: Inactive Member Role Status Dates Henri Garcia JR DO Primary Care Provider Active Start: January 19, 2024 End: January 19, 2024 Rachelle Winn APRN Attending Provider Active Start: January 19, 2024 End: January 19, 2024 Team Status: Inactive Member Role Status Dates Henri Garcia JR DO Primary Care Provider Active Start: February 13, 2024 End: February 13, 2024 Rachelle Winn APRN Attending Provider Active Start: February 13, 2024 End: February 13, 2024 Team Status: Inactive Member Role Status Dates Henri Garcia JR DO Primary Care Provider Active Start: February 28, 2024 End: February 28, 2024 Rachelle Winn APRN Attending Provider Active Start: February 28, 2024 End: February 28, 2024 Goals (unrecognized section and content) Goals may be documented in a n alternate section FOR RECORDS PERTAINING TO PATIENTS WHO ARE OR HAVE BEEN ENROLLED IN A CHEMICAL DEPENDENCY/SUBSTANCEABUSE PROGRAM, SOME INFORMATION MAY BE OMITTED. This clinical summary was aggregated from multiple sources. Caution should be exercised in using it in the provision of clinical care. This summary normalizes information from multiple sources, and as a consequence, information in this document may materially change the coding, format and clinical context of patient data. In addition, data may be omitted in some cases. CLINICAL DECISIONS SHOULD BE BASED ON THE PRIMARY CLINICAL RECORDS. [employer] provides no warranty or guarantee of the accuracy or completeness of information in this document.
[2024-06-18 07:49] VITALS: BP 123/75; PULSE 71; TEMP 36.2; O2SAT 97
[2024-06-18 08:28] VITALS: BP 127/71; PULSE 76; O2SAT 96
[2024-06-18 08:31] VITALS: BP 127/73; PULSE 68; O2SAT 97
--- NOTE | 2024-06-18 08:33 | W.PM.PROCNOT ---
Date of procedure: 06/18/24 Pre-op diagnosis: Pain due to lumbar stenosis with neurogenic claudication Post-op diagnosis: same as pre-op Procedure: Procedure: Bilateral L4-5 transforaminal epidural steroid injection Medications: Bupivacaine 0.25% 2cc, lidocaine 2% 1cc, depomedrol 80mg The patient was seen and examined in the preoperative holding area.? Informed consent was obtained and placed on the chart.? Patient was brought to the medical procedure unit and placed in the prone position where a timeout was completed verifying the correct patient, procedure site, position, and planned special equipment using sterile aseptic technique.? Under direct fluoroscopic visualization a 25-gauge Quincke tipped spinal needle was advanced at level left L4-5 to the designated neural foramen where contrast dye was injected to show adequate spread.? There was no evidence of vascular or adverse uptake.? Epidural spread was appreciated.? The above-mentioned injectate was then placed in a 1.5 mL aliquot preceded by negative aspiration.? The needle was removed. The same procedure, at the same level, was completed on the opposite side. ? Patient was taken to the postprocedural recovery area and monitored for an appropriate length of time before found suitable for discharge in the accompaniment of a responsible adult. Anesthesia: Local Surgeon: Luis Rios Pathology: none sent Condition: stable Disposition: no change
[2024-06-18] MEDS: IOHEXOL 240 MG/ML - 10 ML VIAL 12 MG INJ (08:34)
[2024-06-18] MEDS: BUPIVACAINE HCL 0.25% PF 25 MG/10 ML VIAL INJ (08:34)
[2024-06-18] MEDS: 0.9 % SODIUM CHLORIDE 10 ML SYRINGE - SALINE FLUSH INJ (08:34)
[2024-06-18] MEDS: LIDOCAINE HCL 2% 400 MG/20 ML MDV 3 ML INJ (08:35)
[2024-06-18] MEDS: METHYLPREDNISOLONE ACETATE 80 MG/ML VIAL INJ (08:35)
== END 2024-06-18 08:39 | disposition home or self-care (01) ==
LOC: SURGOUT 07:35
PROVIDERS: PCP Internal Medicine; Visit Provider Anesthesiology
DX: M48.062 Spinal stenosis, lumbar region with neurogenic claudication (principal)
CPT/HCPCS: 64483; J0665; J1010; Q9966

== ENCOUNTER 2024-07-05 10:05 | Outpatient (OUT) | payer MEDICARE, SELFPAY ==
--- NOTE | 2024-07-05 10:53 | P.CN_ITS ---
Consult Note: HPI Data of Consult Patient: known to practice within the last 3 years Requesting Physician: Jeaneth Vega NP Primary Care Provider: VIVEK GARCIA DO Consult Narrative Reason for consult: f/u Narrative: Kelly Carroll a pleasant 68 year old female presents for evaluation and management of chronic lumbar radiculopathy secondary to lumbar stenosis. has failed greater than 6 weeks of PT and aquatherapy, continues to engage in HEP as tolerated. utilizes tylenol, motrin, and zonegran 50mg HS with mild relief. recently underwent bilateral L4-5 TFESI with 15% improvement per pt. ENEIDA now 27%. Pain 2/10 increasing to 6/10 with sitting for too long, standing, walking, stairs, bending, and activity. finds improvement in pain with lying down, leaning forward and TENS. cc:: CC: Jeaneth Vega NP Review of Systems ROS Status of ROS 10 or more systems reviewed and unremark able except as noted in history and below Musculoskeletal Reports: back pain and extremity pain PFSH PFSH Medical History (Updated 07/05/24 @ 10:54 by Jeaneth Vega NP) Hypothyroid ?E03.9 - Hypothyroidism, unspecified (ICD-10) Palpitations ?R00.2 - Palpitations (ICD-10) Surgical History (Updated 06/06/24 @ 09:33 by Kourtney Gong RN) History of lumbar surgery ?Z98.890 - Other specified postprocedural states (ICD-10) History of hysterectomy ?Z90.710 - Acquired absence of both cervix and uterus (ICD-10) Meds Home Medications and Allergies Home Medications ?Medication ?Instructions ?Recorded ?Confirmed ?Type levothyroxine 25 mcg tablet 25 mcg PO DAILY 12/27/23 06/18/24 History montelukast 10 mg tablet 10 mg PO DAILY 12/27/23 06/18/24 History rosuvastatin 5 mg tablet 5 mg PO DAILY 12/27/23 06/18/24 History venlafaxine 150 mg 150 mg PO QAM 12/27/23 06/18/24 History capsule,extended release 24 hr zonisamide 50 mg capsule 100 mg PO DAILY 06/06/24 06/18/24 History Allergies Allergy/AdvReac Type Severity Reaction Status Date / Time No Known Drug Allergies Allergy Verified 06/18/24 09:13 Exam Constitutional Documenting provider has reviewed patient's vital signs: yes Common normals: no apparent distress, oriented x3, healthy appearing, alert and well nourished General appearance: cooperative HENMT Common normals: normocephalic, hearing grossly normal bilaterally and moist oral mucous membranes Head and scalp: normocephalic Eye Common normals: PERRL Pupil: PERRL Neck & C-Spine Common normals: full ROM General: normal visual inspection Chest Common normals: inspection of chest normal Respiratory Common normals: normal respiratory effort, no retractions and no use of accessory muscles Back & Pelvis Lumbar spine/lower back: ROM limited, pain with ROM, lumbar spinal tenderness, paraspinal muscle tenderness, paraspinal muscle spasm, straight leg raise positive right and straight leg raise positive left Other: bilateral L3,4,5,S1 radiculopathy altered sensation bilateral L5-S1 dermatomes strength 4/5 in BLE Extremity Common normals: normal to inspection and full ROM Neuro Common normals: oriented x3, CN's II-XII intact bilaterally, moves all extremities, no focal motor deficits, no sensory deficits noted and deep tendon reflexes 2+ bilaterally Sensorium/orientation: alert Motor exam: no movement abnormalities noted Psych Common normals: mental status grossly normal, thought process normal, cooperative, affect normal, speech normal and activity/motor behavior normal Speech: normal speech Thought process: normal thought process Results Additional Findings Additional findings: If on a controlled substance or opioids, I have checked an [place]AR[place] report on this patient and there are no aberrancies noted in the prescribing history.??If on a controlled substance or opioid a drug screen was completed and reviewed within the last year, and if there has not been a drug screen completed we ordered one today to monitor higher risk, state monitored pain medication use. As part of providing excellent, safe, comprehensive care, the following was completed at our patient's visit: 1. A medication reconciliation and review to ensure accurate knowledge of current/active medications, including asking our patients to inform us about any [id number] medications or herbal remedies/nutritional supp lements/alternative remedies. 2. A review to specifically ensure our patients have had annual screening for screening for depression, screening for tobacco use, and screening for unhealthy alcohol use. For concerning screenings had a discussion with the patient, provided patient education, and recommended follow-up with primary care provider when appropriate. If patient noted with a risk of falling, they received education on strength, gait, and balance training to prevent future risk of falling. Assessment and Plan Assessment and Plan (1) Lumbar stenosis with neurogenic claudication: Plan as discussed with significant multilevel stenosis and pain pt may benefit joint terminal attack controller from surgical intervention, could consider spinal cord stimulation if non- surgical or declines surgical intervention. pt given handout on [employer] spinal cord stimulation and advised to see her NS team regarding surgical options. minimal relief from bilateral L4-5 TFESI but notices improvement in upper leg/groin pain since injection we will trial bilateral L5-S1 TFESI under fluoroscopy, risks vs benefits reviewed as her symptoms are significantly coming from l5/S1 encouraged zonegran 50-100mg daily, previously started on 100mg hs but could not tolerate due to drowsiness but shes now been on 50mg HS without difficulty/side effects continue HEP as tolerated continue PRN tylenol and motrin OTC f/u after injection
== END 2024-07-05 10:06 | disposition home or self-care (01) ==
LOC: PM 10:05
PROVIDERS: PCP Internal Medicine; Visit Provider Nurse Practitioner
DX: M48.062 Spinal stenosis, lumbar region with neurogenic claudication (principal)
CPT/HCPCS: G0463

== ENCOUNTER 2024-07-16 08:23 | Day surgery (SDC) | payer MEDICARE, SELFPAY ==
--- OUTSIDE RECORDS SUMMARY | 2024-07-16 08:38 | XMS_ITS | CCD ---
Author Organization [facility] Care Team Providers Care Curriculum Coordinator Name Role Phone Messi Jimenez Unavailable DR [...] Attending Unavailable Henri Garcia Primary Care Unavailable Rachelle Winn Admitting Unavailable Rachelle Winn Attending Unavailable RACHELLE WINN Referring Unavailable HENRI GARCIA JR Primary Care Unavailable Gabriel JOYCE, Luis Hope Attending Unavailable Allergies Allergy Classification Reported Allergen(s) Allergy Type Date of Onset Reaction(s) Facility (4 sources) celecoxib Drug Allergy [facility] Other (1 source) celecoxib Drug Allergy 01-19-2024 [facility] Repository Medications Current Medications Medication Drug Class(es) [...] 05-21-2022 Episodic Other aftercare (1 source) Other termination clerk (current) drug therapy; Translations: [OTH SPECIAL INVESTIGATOR CURRENT DRUG THERAPY] Onset: 05-24-2022 Episodic Other [...] AP/LAT/FLX/E XTon 02-28-2024 XR lumbar spine AP/LAT/FLX/EXT [facility] [place] [address] XRay Report Signed Patient: Kelly Carroll MR#: [id number] : 1955 Acct:[id number] Age/Sex: 68 / F ADM Date: 02/28/24 Loc: [place] Room: Type: [facility] Attending Dr: Rachelle Winn APRN Copies to: [...] L4-L5. Impression dictated by: Narendra Aquino Jr., D.OMarilin02/28/2024 2:45 PM Dictation Location: [place] [address] Transcribed By: [facility] 02/28/24 1445 Dictated By: Narendra Aquino Jr, DO 02/28/24 1441 Signed By: 02/28/24 1445 Normal [facility] MR lumbar spine wo/w conon 0 02-14-2024 MR lumbar spine wo/w con [facility] [place] [address] MRI Report Signed Patient: Kelly Carroll MR#: [id number] : 1955 Acct:[id number] Age/Sex: 68 / F ADM Date: 02/13/24 Loc: MR Room: Type: [facility] Attending Dr: Rachelle Winn APRN Copies to: [...] and small bilateral facet effusions. There is owed-hr-xyzdhhof narrowing of the spinal canal with moderate [...] Timothy Daniel M.D.02/14/2024 12:31 PM Dictation Location: [place] [address] Transcribed By: [facility] 02/14/24 1231 Dictated By: Timothy Daniel II, MD 02/14/24 1220 Signed By: 02/14/24 1231 Normal [facility] Creatinine (Bld) [Mass/Vol]O rdered By: Rachelle Winn on 02-13-2024 Creatinine [Mass/Vol] 0.8 mg/dL 0.6-1.3 [facility] Comment on above: ER/ESD physician is notified/shown all ISTAT results.Critical values may be confirmed by laboratory testing ifdeemed necessary by ER attending doctor. No Panel InformationOrdered By: Rachelle Winn on 02-13-2024 Bedside Estimated GFR (eGFR) > 60.0 [facility] CARDIAC TIMOTHY ADMITon 022 CK [Catalytic activity/Vol] 112 U/L Normal 26-192 [facility] Comment on above: Performed By: #### C CARLI JOHNSON #### [facility] [address] [place] [address] Dr. Didier Gamez CK.MB [Mass/Vol] 1.46 ng/mL Normal <=3.60 [facility] Comment on above: Performed By: #### C CARLI JOHNSON #### [facility] [address] [address] [address] Didier Gamez HSTROP 5.7 pg/mL Normal 4.0-51.3 [facility] Comment on above: Result Comment: CUT- OFF POINTS HAVE BEEN ESTABLISHED BASED ON THE FOURTH UNIVERSAL DEFINITIONS OF MYOCARDIAL INFARCTION. THE UPPER REFERENCE LIMIT (URL) OF TROPONIN, DEFINED THE 99TH PERCENTILE OF cTnI DISTRIBUTION IN A REFERENCE POPULATION, HAS BEEN CONFIRMED THE DECISION THRESHOLD FOR ID DIAGNOSIS. Performed By: #### C CARLI JOHNSON #### [facility] [address] [address] [address] Didier Gamez ALTON 42 ng/mL Normal 9-[address] [facility] Comment on above: Performed By: #### C MP, CMADM #### [facility] [address] [place] [address] Dr. Didier Gamez CBC AUTO DIFFon 05-15-2022 BASO # 0.0 103/ul Normal 0.0-0.[address] [facility] Comment on above: Performed By: #### C BC #### [facility] [address] [place] [address] Dr. Didier Gamez Basophils/100 WBC (Bld) 0.6 % Normal 0.2-2.0 [facility] Comment on above: Performed By: #### C BC #### [facility] [address] [place] [address] Dr. Didier Gamez EO # 0.1 103/ul Normal 0.0-0.[address] [facility] Comment on above: Performed By: #### C BC #### [facility] [address] [place] [address] Dr. Didier Gamez Eosinophils/100 WBC (Bld) 0.7 % Critically low 0.9-7.[address] [facility] Comment on above: Performed By: #### C BC #### [facility] [address] [place] [address] Dr. Didier Gamez Erythrocyte distribution width (RBC) [Ratio] 13.1 % Normal 11.0-15.[address] [facility] Comment on above: Performed By: #### C BC #### [facility] [address] [place] [address] Dr. Didier Gamez Hematocrit (Bld) [Volume fraction] 41.0 % Normal 36.0-48.[address] [facility] Comment on above: Performed By: #### C BC #### [facility] [address] [place] [address] Dr. Didier Gamez Hemoglobin (Bld) [Mass/Vol] 13.6 g/dL Normal 12.0-16.[address] [facility] Comment on above: Performed By: #### C BC #### [facility] [address] [place] [address] Dr. Didier Gamez IG # 0.01 10e3/ul Normal 0.00-0.[address] [facility] Comment on above: Performed By: #### C BC #### [facility] [address] [place] [address] Dr. Didier Gamez IG % 0.1 % Normal 0.0-0.[address] [facility] Comment on above: Performed By: #### C BC #### [facility] [address] [place] [address] Dr. Didier Gamez LYMPH # 1.5 103/ul Normal 1.2-3.[address] [facility] Comment on above: Performed By: #### C BC #### [facility] [address] [place] [address] Dr. Didier Gamez Lymphocytes/100 WBC (Bld) 21.8 % Normal 20.5-60.[address] [facility] Comment on above: Performed By: #### C BC #### [facility] [address] [place] [address] Dr. Didier Gamez MANUAL DIFF REQ NO Normal [facility] Comment on above: Performed By: #### C BC #### [facility] [address] [place] [address] Dr. Didier Gamez MCH (RBC) [Entitic mass] 30.7 pg Normal 26.7-34.[address] [facility] Comment on above: Performed By: #### C BC #### [facility] [address] [place] [address] Dr. Didier Gamez MCHC (RBC) [Mass/Vol] 33.2 g/dL Normal 29.9-35.[address] [facility] Comment on above: Performed By: #### C BC #### [facility] [address] [place] [address] Dr. Didier Gamez MCV (RBC) [Entitic vol] 92.6 fL Normal 81.0-99.0 [facility] Comment on above: Performed By: #### C BC #### [facility] [address] [place] [address] Dr. Didier Gamez MONO # 0.6 103/ul Normal 0.3-0.[address] [facility] Comment on above: Performed By: #### C BC #### [facility] [address] [place] [address] Dr. Didier Gamez Monocytes/100 WBC (Bld) 8.0 % Normal 1.7-12.0 [facility] Comment on above: Performed By: #### C BC #### [facility] [address] [place] [address] Dr. Didier Gamez NEUT # 4.7 103/ul Normal 1.4-6.[address] [facility] Comment on above: Performed By: #### C BC #### [facility] [address] [place] [address] Dr. Didier Gamez Neutrophils/100 WBC (Bld) 68.8 % Normal 43.0-75.[address] [facility] Comment on above: Performed By: #### C BC #### [facility] [address] [place] [address] Dr. Didier Gamez Platelet mean volume (Bld) [Entitic vol] 9.9 fL Normal 9.5-13.[address] [facility] Comment on above: Performed By: #### C BC #### [facility] [address] [place] [address] Dr. Didier Gamez PLT 332 103/ul Normal 150-450 [facility] Comment on above: Performed By: #### C BC #### [facility] [address] [place] [address] Dr. Didier Gamez RBC 4.43 106/ul Normal 4.20-5.[address] [facility] Comment on above: Performed By: #### C BC #### [facility] [address] [place] [address] Dr. Didier Gamez WBC 6.9 103/ul Normal 4.0-11.[address] [facility] Comment on above: Performed By: #### C BC #### [facility] [address] [place] [address] Dr. Didier Gamez ER URINE PROFILEon 2 Bilirubin Ql (U) Negative Normal NEGATIVE [facility] Comment on above: Performed By: #### E RUR #### [facility] [address] [place] [address] Dr. Didier Gamez Clarity (U) CLEAR Normal CLEAR [facility] Comment on above: Performed By: #### E RUR #### [facility] [address] [place] [address] Dr. Didier Gamez Color (U) LT. YELLOW Normal YELLOW [facility] Comment on above: Performed By: #### E RUR #### [facility] [address] [place] [address] Dr. Didier SCHWAB A micrscopic examination will be performed if indicated. Normal [facility] Comment on above: Performed By: #### E RUR #### [facility] [address] [place] [address] Dr. Didier Gamez Glucose Ql (U) Negative Normal NEGATIVE [facility] Comment on above: Performed By: #### E RUR #### [facility] [address] [place] [address] Dr. Didier Gamez Hemoglobin Ql (U) Negative Normal NEGATIVE [facility] Comment on above: Performed By: #### E RUR #### [facility] [address] [place] [address] Dr. Didier Gamez Ketones Ql (U) TRACE Abnormal NEGATIVE [facility] Comment on above: Performed By: #### E RUR #### [facility] [address] [place] [address] Dr. Didier Gamez LEUKOCYTES Negative Normal NEGATIVE [facility] Comment on above: Performed By: #### E RUR #### [facility] [address] [place] [address] Dr. Didier Gamez Nitrite Ql (U) Negative Normal NEGATIVE [facility] Comment on above: Performed By: #### E RUR #### [facility] [address] [place] [address] Dr. Didier Gamez pH (U) 7.5 [pH] Normal 5-9 [facility] Comment on above: Performed By: #### E RUR #### [facility] [address] [place] [address] Dr. Didier Gamez SPEC GRAVITY 1.020 Normal 1.005-<=1.025 [facility] Comment on above: Performed By: #### E RUR #### [facility] [address] [place] [address] Dr. Didier Gamez UA PROTEIN Negative Normal NEGATIVE/ TRACE [facility] Comment on above: Performed By: #### E RUR #### [facility] [address] [place] [address] Dr. Didier Gamez UR MICRO IND NOT INDICATED Normal [facility] Comment on above: Performed By: #### E RUR #### [facility] [address] [place] [address] Dr. Didier Gamez Urobilinogen Qn (U) 0.2 {Wale'U}/dL Normal 0.2 - 1. [address] [facility] Comment on above: Performed By: #### E RUR #### [facility] [address] [place] [address] Dr. Didier Gamez PROF 14(COMP METB)on 022 Albumin [Mass/Vol] 4.1 g/dL Normal 3.4-5.0 [facility] Comment on above: Performed By: #### C CARLI JOHNSON #### [facility] [address] [place] [address] Dr. Didier Gamez Albumin/Globulin [Mass ratio] 1.3 {ratio} Normal [facility] Comment on above: Performed By: #### C CARLI JOHNSON #### [facility] [address] [place] [address] Dr. Didier Gamez ALP [Catalytic activity/Vol] 62 U/L Normal 46-116 [facility] Comment on above: Performed By: #### C CARLI JOHNSON #### [facility] [address] [place] [address] Dr. Didier Gamez ALT [Catalytic activity/Vol] 31 U/L Normal 14-[address] [facility] Comment on above: Performed By: #### C CARLI JOHNSON #### [facility] [address] [address] [address] Didier Gamez Anion gap [Moles/Vol] 13.1 mmol/L Normal [facility] Comment on above: Performed By: #### C ELIZABETH, CMADM #### [facility] [address] [address] [address] Didier Gamez AST [Catalytic activity/Vol] 16 U/L Normal 15-[address] [facility] Comment on above: Performed By: #### C ELIZABETH, CMADM #### [facility] [address] [address] [address] Didier Gamez Bilirubin [Mass/Vol] 0.3 mg/dL Normal 0.2-1.[address] [facility] Comment on above: Performed By: #### C ELIZABETH, CMADM #### [facility] [address] [place] [address] Dr. Didier Gamez Calcium [Mass/Vol] 9.1 mg/dL Normal 8.5-10.1 [facility] Comment on above: Performed By: #### C ELIZABETH, CMADM #### [facility] [address] [address] [address] Didier Gamez Chloride [Moles/Vol] 96 mmol/L Critically low 98-107 [facility] Comment on above: Performed By: #### C ELIZABETH, CMADM #### [facility] [address] [place] [address] Dr. Didier Gamez CO2 [Moles/Vol] 27.7 mmol/L Normal 21.0-32.0 [facility] Comment on above: Performed By: #### C ELIZABETH, CMADM #### [facility] [address] [place] [address] Dr. Didier Gamez Creatinine [Mass/Vol] 0.69 mg/dL Normal 0.55-1.02 [facility] Comment on above: Performed By: #### C ELIZABETH, CMADM #### [facility] [address] [address] [address] Didier Gamez EGFR-AF [place] >60 Normal >=60 [facility] Comment on above: Performed By: #### C ELIZABETH, CMADM #### [facility] [address] [address] [address] Didier Gamez EGFR-NON AF [place] >60 Normal >=[address] [facility] Comment on above: Performed By: #### C ELIZABETH, CMADM #### [facility] [address] [address] [address] Didier Gamez Globulin (S) [Mass/Vol] 3.2 g/dL Normal T [facility] Comment on above: Performed By: #### C ELIZABETH, CMADM #### [facility] [address] [place] [address] Dr. Didier Gamez Glucose [Mass/Vol] 105 mg/dL Normal 74-106 [facility] Comment on above: Performed By: #### C ELIZABETH, CMADM #### [facility] [address] [place] [address] Dr. Didier Gamez Potassium [Moles/Vol] 3.8 mmol/L Normal 3.5-5.[address] [facility] Comment on above: Performed By: #### C ELIZABETH, CMADM #### [facility] [address] [place] [address] Dr. Didier Gamez Protein [Mass/Vol] 7.3 g/dL Normal 6.4-8.2 [facility] Comment on above: Performed By: #### C ELIZABETH, CMADM #### [facility] [address] [place] [address] Dr. Didier Gamez Sodium [Moles/Vol] 133 mmol/L Critically low 136-145 [facility] Comment on above: Performed By: #### C ELIZABETH, CMADM #### [facility] [address] [place] [address] Dr. Didier Gamez Urea nitrogen [Mass/Vol] 10.0 mg/dL Normal 7.0-18.[address] [facility] Comment on above: Performed By: #### C ELIZABETH, CMADM #### [facility] [address] [place] [address] Dr. Didier Gamez Urea nitrogen/Creatinine [Mass ratio] 14.5 mg/mg Normal [facility] Comment on above: Performed By: #### C , CMADM #### [facility] [address] [address] [address] Didier Gamez XR CHEST 1 Von [...] by: LILIANE STUART Date: 2022-05-15 10:49 Normal [facility] Vital Signs Date Time Vital Sign Value Performing Clinician Facility 01-19-2024 10:22-0400 Body height 170.18 cm [facility] 01-19-2024 10:22-0400 Body mass index (BMI) [Ratio] 25.2 kg/m2 [facility] 01-19-2024 10:22-0400 Body weight 73.02 kg [facility] 07-14-2021 10:30-0500 Body height 170.18 cm Messi Jimenez Other [facility] Other 07-14-2021 10:30-0500 Body mass index (BMI) [Ratio] 27.12 kg/m2 Messi Jimenez Other [employer] Other 07-14-2021 10:30-0500 Body weight 78.56 kg Messi Jimenez Other [employer] Other 07-14-2021 10:30-0500 Diastolic blood pressure 60 mm[Hg] Messi Jimenez Other [employer] Other 07-14-2021 10:30-0500 SaO2% (BldA) [Mass fraction] 98 % Messi Jimenez Other [employer] Other 07-14-2021 10:30-0500 Systolic blood pressure 110 mm[Hg] Messi Jimenez Other [employer] Other 06-04-2021 16:30-0500 Body height 170.18 cm Messi Jimenez Other [employer] Other 06-04-2021 16:30-0500 Body mass index (BMI) [Ratio] 27.47 kg/m2 Messi Jimenez Other [employer] Other 06-04-2021 16:30-0500 Body weight 79.56 kg Messi Jimenez Other [employer] Other 06-04-2021 16:30-0500 Diastolic blood pressure 76 mm[Hg] Messi Jimenez Other [employer] Other 06-04-2021 16:30-0500 Respiratory rate 18 /min Messi Jimenez Other [employer] Other 06-04-2021 16:30-0500 SaO2% (BldA) [Mass fraction] 97 % Messi Jimenez Other [employer] Other 06-04-2021 16:30-0500 Systolic blood pressure 128 mm[Hg] Messi Jimenez Other [employer] Other Encounters Encounter Date Encounter Type Care Provider Facility Start: 06-18-2024 End: 06-18-2024 ambulatory Luis Rios MD Facility:[facility] Start: 04-12-2024 [facility] Start: 02-28-2024 End: 02-28-2024 Patient encounter procedure JR Henri Garcia Work Phone: [facility] Work Phone: Start: 02-28-2024 End: 02-28-2024 ambulatory JR Henri Garcia Work Phone: [facility] Work Phone: Start: 02-13-2024 End: 02-13-2024 Patient encounter procedure JR Henri Garcia Work Phone: [facility] [place] Work Phone: Start: 02-13-2024 End: 02-13-2024 ambulatory JR Henri Garcia Work Phone: [facility] Work Phone: Start: 01-19-2024 End: 01-19-2024 ambulatory [facility] Work Phone: Start: 01-19-2024 End: 01-19-2024 Patient encounter procedure [facility] Work Phone: Start: 05-21-2022 End: 05-21-[address] HENRI GARCIA Facility:[facility] Start: 05-15-2022 End: 05-15-[address] HENRI GARCIA Facility:[facility] Start: 07-14-2021 End: 07-14-2021 ambulatory Messi Jimenez Other [employer] Other Start: 07-14-2021 Office outpatient visit 15 minutes Messi Jimenez [facility] Start: 06-18-2021 (Procedure) Short Messi Jimenez [facility] Start: 06-18-2021 End: 06-18-2021 ambulatory Messi Jimenez Other [employer] Other Start: 06-04-2021 End: 06-04-2021 ambulatory Messi Jimenez Other [employer] Other Start: 06-04-2021 Office outpatient visit 25 minutes Messi Jimenez [facility] Start: 05-26-2021 (Procedure) Short Messi Jimenez [facility] Start: 05-26-2021 End: 05-26-2021 ambulatory Messi Jimenez Other [facility] [employer] Other Procedures Date Procedure Procedure Detail Performing [...] spine WO a nd W contrast IV [facility] Start: 02-13-2024 MRI of lumbar spine with contrast MR lumbar spine wo/w con [facility] DXA Skeletal system.axial Views for bone density [facility] MR Lumbar spine WO a nd W contrast IV [facility] XR Lumbar spine 4 Views [facility] Payers Date Payer Category Payer Self-pay [id number] 2023 Private Health Insurance 1960 Medicare [id number] 1955 Unknown [id number] 1955 Unknown [id number] 1955 Unknown [id number] 1955 Unknown [id number] Unknown Marce FELDMAN/PACHECO [id number] Unknown [id number] Unknown [id number] Social History Date Type Detail Facility Sex Assigned At [employer] Other Start: 1955 Sex Assigned At Female F [facility] Evaluation note 07-14-2021 Note Date & [...] (ICD-10 - G89.29) Continue medications as prescribed [facility] Other Evaluation note 06-04-2021 Note Date & [...] Jun, Right hip pain (ICD-10 - M25.551) [employer] Other Evaluation note Note Date & Type Note Facility Evaluation note No Information [facility] Other Evaluation note Note Date & Type Note Facility Evaluation note No assessment information availa [facility] Work Phone: Evaluation note Note Date & Type Note Facility Evaluation note Diagnosis Onset Date Neurogenic claudication due to lumbar spinal stenosis acute [facility] Work Phone: History general Narrative - Reported Note Date & Type Note Facility History general Narrative - Reported Type Medical History seasonal allergies Surgical History hysterectomy 1999 Surgical History I&D right finger x2 (DT cat bit e) 2002 Surgical History Right knee scope 2009 Surgical History back surgery -Dr. Dorsey 2011 Surgical History Left knee scope 05/2020 Hospitalization History see above [employer] Other Summary Purpose Family History No Family [...] CREATED AUTHOR AUTHOR'S ORGANIZ ATION 03/06/2024 [facility] DATE CREATED AUTHOR AUTHOR'S ORGANIZ ATION 04/27/2024 [facility] DATE CREATED AUTHOR AUTHOR'S ORGANIZ ATION 06/27/2024 [facility] Care Teams (unrecognized sec tion and [...] BE BASED ON THE PRIMARY CLINICAL RECORDS. [employer] provides no warranty or guarantee of the accuracy or completeness of information in this document.
[2024-07-16 08:45] VITALS: BP 111/69; PULSE 80; TEMP 36.3; O2SAT 96
[2024-07-16 09:19] VITALS: BP 116/60; BP 121/62; PULSE 70; PULSE 72; O2SAT 96
[2024-07-16] MEDS: BUPIVACAINE HCL 0.25% PF 25 MG/10 ML VIAL INJ (09:20)
[2024-07-16] MEDS: 0.9 % SODIUM CHLORIDE 10 ML SYRINGE - SALINE FLUSH INJ (09:20)
[2024-07-16] MEDS: LIDOCAINE HCL 2% 400 MG/20 ML MDV 3 ML INJ (09:21)
[2024-07-16] MEDS: METHYLPREDNISOLONE ACETATE 80 MG/ML VIAL INJ (09:21)
[2024-07-16] MEDS: IOHEXOL 240 MG/ML - 10 ML VIAL 24 MG INJ (09:21)
--- NOTE | 2024-07-16 09:23 | W.PM.PROCNOT ---
Date of procedure: 07/16/24 Pre-op diagnosis: Pain due to lumbar stenosis with neurogenic claudication Post-op diagnosis: same as pre-op Procedure: Procedure: Bilateral L5-S1 transforaminal epidural steroid injection Medications: Bupivacaine 0.25% 2cc, lidocaine 2% 1cc, depomedrol 80mg The patient was seen and examined in the preoperative holding area.? Informed consent was obtained and placed on the chart.? Patient was brought to the medical procedure unit and placed in the prone position where a timeout was completed verifying the correct patient, procedure site, position, and planned special equipment using sterile aseptic technique.? Under direct fluoroscopic visualization a 25-gauge Quincke tipped spinal needle was advanced at level left L5-S1 to the designated neural foramen where contrast dye was injected to show adequate spread.? There was no evidence of vascular or adverse uptake.? Epidural spread was appreciated.? The above-mentioned injectate was then placed in a 1.5 mL aliquot preceded by negative aspiration.? The needle was removed. The same procedure, at the same level, was completed on the opposite side. ? Patient was taken to the postprocedural recovery area and monitored for an appropriate length of time before found suitable for discharge in the accompaniment of a responsible adult. Anesthesia: Local Surgeon: Luis Rios Pathology: none sent Condition: stable Disposition: no change
== END 2024-07-16 09:32 | disposition home or self-care (01) ==
LOC: SURGOUT 08:23
PROVIDERS: PCP Internal Medicine; Visit Provider Anesthesiology
DX: M48.062 Spinal stenosis, lumbar region with neurogenic claudication (principal)
CPT/HCPCS: 64483; J0665; J1010; Q9966

== ENCOUNTER 2024-07-26 09:09 | Outpatient (OUT) | payer MEDICARE, SELFPAY ==
--- NOTE | 2024-07-26 09:32 | P.CN_ITS ---
Consult Note: HPI Data of Consult Patient: known to practice within the last 3 years Requesting Physician: Jeaneth Vega NP Primary Care Provider: VIVEK GARCIA DO Consult Narrative Reason for consult: f/u Narrative: Kelly Carroll a pleasant 68 year old female presents for evaluation and management of chronic lumbar radiculopathy secondary to lumbar stenosis. has failed greater than 6 weeks of PT and aquatherapy, continues to engage in HEP as tolerated. utilizes tylenol, motrin, and zonegran 50mg HS with mild relief. recently underwent bilateral L4-5 TFESI and bilateral L5-S1 TFESI with Minimal relief. ENEIDA 51%. denies falls. reports pain 4/10 increasing to 8/10 with standing, pushing, pulling, bending, activity, housework, lifting. Pain improved with lying, sitting, sleep. cc:: CC: Jeaneth Vega NP Review of Systems ROS Status of ROS 10 or more systems reviewed and unremark able except as noted in history and below Musculoskeletal Reports: back pain and extremity pain PFSH PFSH Medical History (Updated 07/05/24 @ 10:54 by Jeaneth Vega NP) Hypothyroid ?E03.9 - Hypothyroidism, unspecified (ICD-10) Palpitations ?R00.2 - Palpitations (ICD-10) Surgical History History of lumbar surgery ?Z98.890 - Other specified postprocedural states (ICD-10) History of hysterectomy ?Z90.710 - Acquired absence of both cervix and uterus (ICD-10) Meds Home Medications and Allergies Home Medications ?Medication ?Instructions ?Recorded ?Confirmed ?Type levothyroxine 25 mcg tablet 25 mcg PO DAILY 12/27/23 07/16/24 History montelukast 10 mg tablet 10 mg PO DAILY 12/27/23 07/16/24 History rosuvastatin 5 mg tablet 5 mg PO DAILY 12/27/23 07/16/24 History venlafaxine 150 mg 150 mg PO QAM 12/27/23 07/16/24 History capsule,extended release 24 hr zonisamide 50 mg capsule 100 mg PO DAILY 06/06/24 07/16/24 History Allergies Allergy/AdvReac Type Severity Reaction Status Date / Time No Known Drug Allergies Allergy Verified 07/16/24 08:46 Exam Constitutional Documenting provider has reviewed patient's vital signs: yes Common normals: no apparent distress, oriented x3, healthy appearing, alert and well nourished General appearance: cooperative HENMT Common normals: normocephalic, hearing grossly normal bilaterally and moist oral mucous membranes Head and scalp: normocephalic Eye Common normals: PERRL Pupil: PERRL Neck & C-Spine Common normals: full ROM General: normal visual inspection Chest Common normals: inspection of chest normal Respiratory Common normals: normal respiratory effort, no retractions and no use of accessory muscles Back & Pelvis Lumbar spine/lower back: ROM limited and straight leg raise negative bilaterally; no pain with ROM Other: pain following right L4,5,S1 dermatomal pattern strength 5/5 in BLE Extremity Common normals: normal to inspection and full ROM Neuro Common normals: oriented x3, CN's II-XII intact bilaterally, moves all extremities, no focal motor deficits, no sensory deficits noted and deep tendon reflexes 2+ bilaterally Sensorium/orientation: alert Motor exam: strength 5/5 throughout and no movement abnormalities noted Psych Common normals: mental status grossly normal, thought process normal, cooperative, affect normal, speech normal and activity/motor behavior normal Speech: normal speech Thought process: normal thought process Assessment and Plan Assessment and Plan (1) Lumbar stenosis with neurogenic claudication: (2) Lumbar radiculopathy: Plan continue zonegran 50mg HS, could not tolerate higher doses continue HEP as tolerated f/u with NS for evaluation of surgical intervention. is not interested in spinal cord stim.
== END 2024-07-26 09:10 | disposition home or self-care (01) ==
LOC: PM 09:10
PROVIDERS: PCP Internal Medicine; Visit Provider Nurse Practitioner
DX: M48.062 Spinal stenosis, lumbar region with neurogenic claudication (principal); M54.16 Radiculopathy, lumbar region
CPT/HCPCS: G0463